=== PATIENT | female | born 1970 | race Caucasian/White ===

== ENCOUNTER → 2017-11-21 | Outpatient (CLI) | payer OTHER ==
--- NOTE | 2017-11-21 11:49 | Diagnostic Imaging Report ---
CLINICAL INDICATION: Patient with left leg pain. Rule out DVT. COMPARISON: None. PROCEDURE: Real-time left lower extremity venous Doppler duplex evaluation is performed from the inguinal region through the popliteal fossa. The calf venous structures are also evaluated. FINDINGS: The deep venous system is well visualized and is easily compressible. There is no evidence of deep venous thrombosis, valvular incompetence, or significant collateral circulation. IMPRESSION: There is no ultrasound Doppler evidence of deep venous thrombosis in the left lower extremity. Dictated by: Dictated on workstation # [id number]
== END ==
LOC: RAD 11:09
PROVIDERS: ATTEND Family Medicine

== ENCOUNTER → 2018-09-01 | Outpatient (CLI) | payer OTHER ==
--- NOTE | 2018-09-01 13:58 | Diagnostic Imaging Report ---
PROCEDURE: CT head and CT cervical spine without contrast. TECHNIQUE: Multiple contiguous axial images were obtained through the brain and cervical spine without the use of intravenous contrast. Sagittal and coronal reformations through the cervical spine were then performed. Auto Exposure Controls were utilized during the CT exam to meet ALARA standards for radiation dose reduction. INDICATION: Concussion, cervicalgia, laceration and headache. Comparison: None available. Findings: CT head: No hyperdense hemorrhage or space-occupying mass. No hydrocephalus or midline shift. Montanez-white matter differentiation is well preserved. No acute skull fracture. Paranasal sinuses and mastoid air cells are clear. Orbits are normal in appearance. CT cervical spine: Assessment of the cervical spine is mildly limited due to patient's extremely large body habitus resulting in streak artifact and beam hardening artifact in the cervical spine. Allowing for this, there is no fracture or traumatic malalignment. No features of high-grade spinal stenosis. Multilevel degenerative disc disease contributes to less than mild spinal stenosis and scattered areas of mild to moderate foraminal narrowing. Impression: 1. No acute intracranial process or skull fracture. 2. Allowing for limitations due to patient body habitus, no fracture or traumatic malalignment in the cervical spine. Dictated by: Dictated on workstation # [id number]
== END ==
LOC: RAD 13:22
PROVIDERS: ATTEND Nurse Practitioner Family
DX: Z04.2 Encounter for examination and observation following work accident (principal); S06.0X0A Concussion without loss of consciousness, initial encounter; S01.81XA Laceration without foreign body of other part of head, initial encounter; R41.0 Disorientation, unspecified; N80.9 Endometriosis, unspecified; K21.9 Gastro-esophageal reflux disease without esophagitis; F32.89 Other specified depressive episodes; M12.9 Arthropathy, unspecified; I10 Essential (primary) hypertension
CPT/HCPCS: 70450; 72125